=== PATIENT | male | born 2005 | race Caucasian/White ===

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

== ENCOUNTER → 2023-04-12 13:29 | Outpatient (CLI) | payer BC, SELFPAY ==
--- NOTE | ~2023-04-12 | XR_ITS ---
XR ankle RT min 3V DATE: 04/12/2023 14:01 INDICATION: Right ankle pain TECHNIQUE: 4 views COMPARISON: None FINDINGS: No fracture or dislocation of the ankle or disruption of the ankle mortise is detected. No periosteal reaction or bone destruction. IMPRESSION: Negative Reviewed, dictated and finalized at location L. TRIMMER IMPRESSION: Negative
--- NOTE | ~2023-04-12 | XR_ITS ---
XR ankle LT min 3V DATE: 04/12/2023 14:01 INDICATION: Left ankle pain TECHNIQUE: 4 views COMPARISON: None FINDINGS: No fracture or dislocation of the ankle or disruption of the ankle mortise is detected. No periosteal reaction or bone destruction. Tibiotalar joint space appears well preserved. IMPRESSION: Negative Reviewed, dictated and finalized at location L. [employer] EN[employer] SPECIALIST IMPRESSION: Negative
--- NOTE | ~2023-04-12 | XR_ITS ---
XR lumbar spine min 4V DATE: 04/12/2023 14:01 INDICATION: Low back pain TECHNIQUE: AP, lateral, coned lateral lumbosacral views, flexion and extension lateral views COMPARISON: None FINDINGS: There is minimal lumbar levoscoliosis. There is suggestion of bilateral L5 pars interarticularis defects with grade 1 anterolisthesis at L5- S1. There is approximately 9 mm anterolisthesis at L5-S1 which appears relatively stable in neutral, flexion and extension. Lumbar and lumbosacral interspaces are well preserved. Otherwise no fracture or bone destruction is noted. The included lower thoracic and lumbar pedicles a re intact. The sacroiliac joints are partially included and appear grossly unremarkable. IMPRESSION: Minimal levoscoliosis Bilateral probable L5 pars interarticularis defects with grade 1 anterolisthesis at L5-S1 Reviewed, dictated and finalized at location L. GER IMPRESSION: Minimal levoscoliosis Bilateral probable L5 pars interarticularis defects with grade 1 anterolisthesi s at L5-S1
== END ==
PROVIDERS: PCP Internal Medicine; Visit Provider Internal Medicine
DX: M54.50 Low back pain, unspecified (principal); M25.571 Pain in right ankle and joints of right foot; M25.572 Pain in left ankle and joints of left foot
CPT/HCPCS: 72110; 73610

== ENCOUNTER 2024-05-31 14:05 | Emergency (ER) | payer OTHER, SELFPAY ==
--- NOTE | 2024-05-31 14:05 | ED_ITS ---
HPI - URI/Sore Throat General Chief Complaint: Upper Respiratory Infection Stated Complaint: Cough Time Seen by Provider: 05/31/24 14:05 Source: patient Mode of arrival: ambulatory Limitations: no limitations History of Present Illness HPI Narrative: Patient is a 18-year-old male who presents with flu-like symptoms over the past week. Patient has stayed home from work all week. Patient needs note to return to work. Reports all symptoms have resolved. Related Data Home Medications ?Medication ?Instructions ?Recorded ?Confirmed ?Last Taken ?Type No Home Medications 05/31/24 05/31/24 Unknown History Allergies Allergy/AdvReac Type Severity Reaction Status Date / Time amoxicillin Allergy Unknown Verified 05/31/24 14:16 latex Allergy Rash Verified 05/31/24 14:16 nickel Allergy Rash Verified 05/31/24 14:16 sweet potato Allergy Unknown Verified 05/31/24 14:16 Review of Systems Review of Systems: All systems reviewed & are unremarkable except as noted in HPI and below Constitutional: Constitutional: Denies chills, Denies fatigue, Denies fever(s), Denies headache(s), Denies malaise and Denies weakness Eyes: Eyes: Denies blurry vision, Denies itchy eyes and Denies loss of vision ENT: Denies otalgia, Denies headache(s), Reports nasal congestion, Denies sinus pain and Denies sore throat Cardiovascular: Cardiovascular: Denies chest pain, Denies irregular heart rhythm and Denies dyspnea Respiratory: Respiratory: Reports cough and Denies dyspnea Gastrointestinal: Gastrointestinal: Denies abdominal pain, Denies diarrhea, Denies nausea and Denies vomiting Musculoskeletal: Musculoskeletal: Denies back pain, Denies myalgias and Denies arthralgias Integumentary/Breasts: Skin/Breast: Denies pruritus and Denies rash Neurologic: Denies headache(s), Denies loss of vision and Denies weakness Psychiatric: Psychiatric: Reports no additional psychiatric complaints Endocrine: Endocrine: Denies fatigue Allergic/Immunologic: Allergic/Immunologic: Denies itchy eyes PMFSH Comments At time of signature, agree with nursing past medical, surgical, social and family history. There is no relevant family history pertinent to the presenting complaint. Exam Const: General: cooperative, healthy appearing, comfortable, no acute distress and well nourished Nutritional Appearance: well nourished Orientation/consciousness: patient oriented x3 Limitations: no limitations HENMT: Head: normal to inspection, normocephalic and atraumatic Ears: hearing grossly normal bilaterally, external ears normal, TM's normal bilaterally, EAC's normal and no periauricular adenopathy Face/Nose/Sinus: Normal external nose present, Abnormal mucous membranes and turbinates present erythematous bilateral and diffuse, normal facial exam, sinuses nontender and face symmetric Face and sinus: normal facial exam, sinuses nontender and face symmetric Mouth: Yes Normal oral and palatal mucosa present, Yes lip normal, Yes tongue normal, Yes Normal salivary glands and ducts present, Yes oropharynx normal and Yes moist mucous membranes Teeth and gingiva: dentition normal Throat: posterior oropharynx normal, tonsils normal and uvula midline Eyes: General: appearance normal, both eyes and all related structures Alignment and Position: alignment normal and position normal Periorbital: periorbital findings normal Eyelids: eyelids normal Pupils: Equal, round and reactive pupils present Neck: Neck: normal visual inspection, full ROM, no lymphadenopathy and supple Chest: Chest palpation & inspection: normal inspection of the chest and normal palpation of entire chest wall Resp: Effort & Inspection: normal respiratory effort and able to speak in complete sentences Auscultation: clear to auscultation bilaterally, no crackles, no rales, no rhonchi and no wheezes Cardio: Rate: regular rate Rhythm: regular rhythm Heart sounds: S1 normal heart sound present and S2 normal heart sound present GI: Inspection: normal to inspection Skin: General skin exam: normal color and no rashes or lesions noted Neuro: General: patient oriented x3 and moves all extremities Cranial nerves: Yes Equal, round and reactive pupils present Speech: normal speech Gait exam (Neuro): Normal gait present Extrem: General: normal to inspection, full ROM and no edema Psych: Appearance: grossly normal and well kempt Mental Status: mental status grossly normal Speech and movement: Normal speech and movement present Affect: normal affect Attitude: cooperative Thought process: Normal thought process present Course Course Emergency Course: Discharge instructions reviewed with patient, as well as provided in writing per nursing staff. The instructions also include specific and strict return/GO TO THE ER as well as f/u information. All questions have been answered, and the patient deny any further questions with discharge and discharge plan. Portions of this record may have been created with voice recognition software Level of Care: Express Care Visit Vital Signs Vital signs: Vital Signs Temperature 37.1 C 05/31/24 14:34 Pulse Rate 79 05/31/24 14:34 Respiratory Rate 18 05/31/24 14:34 Blood Pressure 132/68 05/31/24 14:34 Pulse Oximetry 99 05/31/24 14:34 Oxygen Delivery Room Air 05/31/24 14:34 Temperature 37.1 C 05/31/24 14:34 Pulse Rate 79 05/31/24 14:34 Respiratory Rate 18 05/31/24 14:34 Blood Pressure 132/68 05/31/24 14:34 Pulse Oximetry 99 05/31/24 14:34 Oxygen Delivery Room Air 05/31/24 14:34 Reviewed MDM - URI/Sore Throat MDM Narrative Medical decision making narrative: Pt well hydrated appearing, in no respiratory distress, hemodynamically stable. Recommend supportive care. The patient is stable at time of discharge the clinical impression was discussed and the patient was given the opportunity to ask questions, which were addressed as completely as possible given the information available at present. Anticipatory guidance and return to care precautions were discussed and the importance of primary care follow-up was stressed and encouraged. The patient voiced understanding of the plan, indicat ions to return, and the need for follow-up. Differential diagnosis considered: Bronchitis, Sanderson virus, strep pharyngitis, allergic rhinitis, upper respiratory tract infection, sinusitis, rhinosinusitis, nasopharyngitis. viral pharyngitis, otitis media, otitis externa, otitis effusion, foreign body, cerumen impaction, viral syndrome, and influenza.? Exam findings show no acute concerns or changes; patient is non-toxic appearing and is in no distress.? Patient is appropriate for outpatient treatment and follow- up.? Medical Records Attestation: I reviewed the patient's medical records. Discharge Plan Discharge Clinical Impression: Normal exam Patient Disposition: Home, Self-Care Condition: Stable Instructions: Normal Exam (ED) Additional Instructions: 1) Please follow-up with your primary care doctor in the next 1-2 days. 2) If you have any worsening of symptoms or any other urgent concerns please go to the ER. 3) Please take medications as prescribed and continue taking your home medications as usual. 4) Please read and follow information included in discharge instructions. Patient Language: Grenadian Prescriptions: No Action No Home Medications Follow-up/Referrals: Manpreet,MD Chua ([place]) [Primary Care Provider] - 3 Days Stand Alone Forms: Work/School Release IP Time of Disposition: 14:36
[2024-05-31 14:34] VITALS: BP 132/68; PULSE 79; RESP 18; TEMP 37.1; O2SAT 99
== END 2024-05-31 14:45 | disposition home or self-care (01) ==
PROVIDERS: Emergency Provider Nurse Practitioner Family; PCP Internal Medicine
DX: Z00.00 Encounter for general adult medical examination without abnormal findings (principal)
CPT/HCPCS: 99211; G0463